=== PATIENT | female | born 1975 | race African-American/Black ===

== ENCOUNTER 2016-10-20 00:07 | Emergency (ER) | payer BC ==
[~2016-10-20] VITALS: Ht 165.1 cm; Wt 81.6 kg
[~2016-10-20 00:07] MED LIST: vitamin b-12; vitamin d
[2016-10-20] MEDS ORDERED: FUROSEMIDE 40 MG/4 ML VIAL. IVP ONE (01:15)
[2016-10-20 01:44] LABS: BASO # 0.1 x10^3/uL (0.0-0.2); BASO % 1 % (0-3); EOS % 6 % (0-3); HEMATOCRIT 34.5 % (36.0-47.0); HEMOGLOBIN 11.4 g/dL (12.0-15.5); LYMPH # 1.7 x10^3/uL (1.0-4.8); LYMPH % 33 % (24-48); MEAN CORPUSCULAR HEMOGLOBIN 28 pg (25-35); MEAN CORPUSCULAR HGB CONC 33 g/dL (31-37); MEAN CORPUSCULAR VOLUME 86 fL (79-100); MONO % 8 % (0-9); NEUT % 51 % (31-73); PLATELET COUNT 176 x10^3/uL (140-400); RED CELL DISTRIBUTION WIDTH 12.3 % (11.5-14.5); WHITE BLOOD COUNT 5.2 x10^3/uL (4.0-11.0)
[2016-10-20 01:47] LABS: CALCIUM 8.6 mg/dL (8.5-10.1); CREATININE 0.9 mg/dL (0.6-1.0); GFR 82.7; POTASSIUM 3.2 mmol/L (3.5-5.1)
[2016-10-20 01:54] LABS: ALBUMIN 3.7 g/dL (3.4-5.0); TOTAL BILIRUBIN 0.3 mg/dL (0.2-1.0); TOTAL PROTEIN 7.4 g/dL (6.4-8.2)
--- NOTE | 2016-10-20 02:49 | RAD ---
PROCEDURE: Bilateral lower extremity venous Doppler ultrasound. HISTORY Bilateral leg swelling. COMPARISON None. TECHNIQUE Real-time grayscale, color flow, and Doppler spectral waveform analysis of the deep veins of the lower extremity/ies performed. FINDINGS All visualized vein segments demonstrate normal compressibility and augmentation and color flow. Color flow seen within calf veins. IMPRESSION No evidence of right or left lower extremity deep vein thrombosis. Electronically signed by: Fox Sadler MD (October 20, 2016 02:47:35)
--- NOTE | 2016-10-20 03:16 | PHYS DOC ---
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 Patient reports she has pain to both ankles. Patient reports pain is greatest in her bilateral lateral malleolus's. Patient denies any history of hypertension diabetes liver longer kidney problems. Patient has no history of coronary disease or CHF. Patient not smoke or do any drugs. Patient has any recent fevers shakes chills nausea vomiting diarrhea chest pain or shortness of breath. Patient reports that she's noticed lower 70s swelling has been on and off for approximately one week. Patient reports she saw her PCP for and she reports he did not assist her very much with it. Patient's physical exam was significant for 1+ bipedal edema. Patient does have tenderness to palpation to her bilateral lateral malleolus his. Patient's ulcers were intact. Patient has good capillary refill. Patient is 2+ DP/PT pulses bilaterally and they're equal. Patient has no calf tenderness. Patient's ER workup was significant for normal labs. Patient does not have any evidence of CHF or pulmonary edema. Patient is insisting on an ultrasound. Patient feels that she has a clot in her lower 70s and is requesting that we obtain a ultrasound of her lower extremities. A/P #1 bilateral lower some pain. Etiology of this is unclear. This may be related to her fibromyalgia versus peripheral edema. Patient is given a dose of Lasix in the ED and reports no significant improvement. We will discharge her to home. Patient did have an ultrasound of her lower 70s which were negative for a DVT. The systems technologist had quickly looked at her arteries as well and she reports it was triphasic flow. The results were discussed with the patient she feels comfortable now with being discharged home. Review of Systems Review of Systems Constitutional: Denies fever or chills [] Eyes: Denies change in visual acuity, redness, or eye pain [] HENT: Denies nasal congestion or sore throat [] All other review systems are negative except as documented in the history of present illness portion. Current Medications Current Medications Current Medications Medications (Trade) Dose Ordered Sig/Riana Start Time Stop Time Status Last Admin Dose Admin Furosemide (Lasix) 40 mg 1X ONCE 10/20/16 01:15 10/20/16 01:16 DC 10/20/16 01:45 40 MG Allergies Allergies Allergies Coded Allergies Type Severity Reaction Last Updated Verified Penicillins Allergy Unknown Unknown 10/20/16 Yes Physical Exam Physical Exam Constitutional: Well developed, well nourished, no acute distress, non-toxic appearance. [] HENT: Normocephalic, atraumatic, bilateral external ears normal, Eyes: PERRLA, EOMI, conjunctiva normal, no discharge. [] Neck: Normal range of motion, no tenderness, Cardiovascular:Heart rate regular rhythm, Lungs & Thorax: Bilateral breath sounds clear to auscultation [] Abdomen: no tenderness, no masses, no pulsatile masses. [] Skin: Warm, dry, Back: No tenderness, Extremities: see above Neurologic: Alert and oriented X 3, normal motor function, normal sensory function, no focal deficits noted. [] Psychologic: Affect normal, judgement normal, mood normal. [] Current Patient Data Vital Signs Vital Signs Date Time Temp Pulse Resp B/P (MAP) Pulse Ox O2 Delivery O2 Flow Rate FiO2 10/20/16 00:57 98.6 81 16 122/75 (91) 100 Room Air 98.6 Lab Values Laboratory Tests Test 10/20/16 01:33 White Blood Count 5.2 x10^3/uL (4.0-11.0) Red Blood Count 4.00 x10^6/uL (3.50-5.40) Hemoglobin 11.4 g/dL (12.0-15.5) L Hematocrit 34.5 % (36.0-47.0) L Mean Corpuscular Volume 86 fL (79-100) Mean Corpuscular Hemoglobin 28 pg (25-35) Mean Corpuscular Hemoglobin Concent 33 g/dL (31-37) Red Cell Distribution Width 12.3 % (11.5-14.5) Platelet Count 176 x10^3/uL (140-400) Neutrophils (%) (Auto) 51 % (31-73) Lymphocytes (%) (Auto) 33 % (24-48) Monocytes (%) (Auto) 8 % (0-9) Eosinophils (%) (Auto) 6 % (0-3) H Basophils (%) (Auto) 1 % (0-3) Neutrophils # (Auto) 2.6 x10^3uL (1.8-7.7) Lymphocytes # (Auto) 1.7 x10^3/uL (1.0-4.8) Monocytes # (Auto) 0.4 x10^3/uL (0.0-1.1) Eosinophils # (Auto) 0.3 x10^3/uL (0.0-0.7) Basophils # (Auto) 0.1 x10^3/uL (0.0-0.2) D-Dimer (Terra) 0.54 ug/mlFEU (0.00-0.50) H Sodium Level 142 mmol/L (136-145) Potassium Level 3.2 mmol/L (3.5-5.1) L Chloride Level 107 mmol/L (98-107) Carbon Dioxide Level 28 mmol/L (21-32) Anion Gap 7 (6-14) Blood Urea Nitrogen 13 mg/dL (7-20) Creatinine 0.9 mg/dL (0.6-1.0) Estimated GFR (Cockcroft-Gault) 82.7 BUN/Creatinine Ratio 14 (6-20) Glucose Level 94 mg/dL (70-99) Calcium Level 8.6 mg/dL (8.5-10.1) Total Bilirubin 0.3 mg/dL (0.2-1.0) Aspartate Amino Transferase (AST) 25 U/L (15-37) Alanine Aminotransferase (ALT) 18 U/L (14-59) Alkaline Phosphatase 44 U/L (46-116) L TL-Wft-H-Type Natriuretic Peptide 48 pg/mL (0-124) Total Protein 7.4 g/dL (6.4-8.2) Albumin 3.7 g/dL (3.4-5.0) Albumin/Globulin Ratio 1.0 (1.0-1.7) Laboratory Tests 10/20/16 01:33 Laboratory Tests 10/20/16 01:33 EKG EKG [] Radiology/Procedures Radiology/Procedures [] Course & Med Decision Making Course & Med Decision Making Pertinent Labs and Imaging studies reviewed. (See chart for details) [] Dragon Disclaimer Dragon Disclaimer This electronic medical record was generated, in whole or in part, using a voice recognition dictation system. Departure Departure Impression: Primary Impression: Leg pain, bilateral Additional Impression: Peripheral edema Disposition: HOME, SELF-CARE Condition: STABLE Referrals: DERIC BENNETT MD (PCP) Patient Instructions: Ankle Pain, Fibromyalgia, Peripheral Edema Problem Qualifiers ANTONY AVALOS MD October 20, 2016 03:16
[2016-10-20 03:30] VITALS: BP 105/65
== END 2016-10-20 03:37 | disposition home or self-care (01) ==
LOC: ER 00:07
DX: M25.572 Pain in left ankle and joints of left foot (principal); M25.571 Pain in right ankle and joints of right foot; R60.0 Localized edema; M79.7 Fibromyalgia; F41.9 Anxiety disorder, unspecified; Z88.0 Allergy status to penicillin; Z90.49 Acquired absence of other specified parts of digestive tract
CPT/HCPCS: 36415; 80053; 83880; 85027; 85379; 93970; 96374; 99285; J1940

== ENCOUNTER 2017-03-11 21:28 | Emergency (ER) | payer BC ==
[~2017-03-11] VITALS: Ht 165.1 cm; Wt 80.7 kg
[2017-03-11 21:45] VITALS: BP 126/82
[2017-03-11] MEDS ORDERED: SULF1TAB24 PO (21:56)
[2017-03-11] MEDS ORDERED: NAPR500T PO (21:56)
--- NOTE | 2017-03-11 21:57 | PHYS DOC ---
Past Medical History Past Medical History: Anxiety, Fibromyalgia Past Surgical History: Cholecystectomy, Tonsillectomy, Other Additional Past Surgical Histo: lt knee, eptopic preg, breast augmentation Alcohol Use: None Drug Use: None Adult General Chief Complaint Chief Complaint: INSECT BITE [facility] HPI Patient is a 42 year old [female presents to the emergency department with complaints of an insect bite to the right forearm. She noticed yesterday she had what appear to be mosquito bite on the right forearm. Today the is red swollen and hot. She is here seeking evaluation. She reports no fever, no nausea , no vomiting, no myalgias, no arthralgias. Review of Systems Review of Systems Constitutional: Denies fever or chills [] Eyes: Denies change in visual acuity, redness, or eye pain [] HENT: Denies nasal congestion or sore throat [] Respiratory: Denies cough or shortness of breath [] Cardiovascular: No additional information not addressed in HPI [] GI: Denies abdominal pain, nausea, vomiting, bloody stools or diarrhea [] : Denies dysuria or hematuria [] Musculoskeletal: Denies back pain or joint pain [] Integument: Red bite on forearm Neurologic: Denies headache, focal weakness or sensory changes [] Endocrine: Denies polyuria or polydipsia [] Allergies Allergies Allergies Coded Allergies Type Severity Reaction Last Updated Verified Penicillins Allergy Unknown Unknown 10/20/16 Yes Physical Exam Physical Exam Constitutional: Well developed, well nourished, no acute distress, non-toxic appearance. [] HENT: Normocephalic, atraumatic, bilateral external ears normal, oropharynx moist, no oral exudates, nose normal. [] Eyes: PERRLA, EOMI, conjunctiva normal, no discharge. [] Neck: Normal range of motion, no tenderness, supple felt lymphadenopathy, no stridor. [] Cardiovascular:Heart rate regular rhythm, no murmur [] Lungs & Thorax: Bilateral breath sounds clear to auscultation [] Abdomen: Bowel sounds normal, soft, no tenderness, no masses, no pulsatile masses. [] Skin: Warm, dry, no erythema, no rash. [] Back: No tenderness, no CVA tenderness. [] Extremities: Right forearm distal to the antecubital space 5 cm area of erythema that is slightly raised. There is a 1 cm of central induration with a puncture racheal. There is no discharge, no fluctuance. It is nontender to palpate. Neurologic: Alert and oriented X 3, normal motor function, normal sensory function, no focal deficits noted. [] Psychologic: Affect normal, judgement normal, mood normal. [] EKG EKG [] Radiology/Procedures Radiology/Procedures [] Course & Med Decision Making Course & Med Decision Making Pertinent Labs and Imaging studies reviewed. (See chart for details) []Patient has a small area of induration that appears to be cellulitis. She'll be placed on Bactrim 1 by mouth twice a day #20 no refills. She was advised to use ice and draw for underlying allergic component. I spoke with the patient and/or care givers. I've explained the patient's condition, diagnosis and treatment plan based on the information available to me at this time. I've answered the patient's and/or care givers questions and a dressing concerns. The patient and/or care givers have as good an understanding of the patient's diagnosis, condition and treatment plan as can be expected at this time. Vital signs stable. The patient's condition is stable and appropriate for discharge from the emergency department. The patient will pursue further outpatient evaluation with the primary care physician or other designated or consulting physician as outlined in the discharge instructions. The patient and/or care givers are agreeable to this plan of care and follow-up instructions and explained in detail. The patient and /or care givers have received these instructions in written format and have expressed an understanding of the discharge instructions. The patient and/or caregivers are aware that any significant change in condition or worsening of symptoms should prompt immediate return to this closest emergency department or call to 911. Dragon Disclaimer Dragon Disclaimer This electronic medical record was generated, in whole or in part, using a voice recognition dictation system. Departure Departure Impression: Primary Impression: Cellulitis Additional Impression: Insect bite Disposition: HOME, SELF-CARE Condition: STABLE Referrals: DERIC BENNETT MD (PCP) Patient Instructions: Cellulitis, Insect Bite Scripts Naproxen (NAPROSYN) 500 Mg Tablet 500 MG PO BID Y for PAIN, #20 TAB Prov: EMELINA SAWYER APRN 03/11/17 Sulfamethoxazole/Trimethoprim (BACTRIM DS TABLET) 1 Each Tablet 1 TAB PO BID, #20 TAB Prov: EMELINA SAWYER INTERNIST 03/11/17 Problem Qualifiers Primary Impression: Cellulitis Site of cellulitis: extremity Site of cellulitis of extremity: upper extremity Laterality: right Qualified Codes: L03.113 - Cellulitis of right upper limb Additional Impression: Insect bite Encounter type: initial encounter Qualified Codes: W57.XXXA - Bitten or stung by nonvenomous insect and other nonvenomous arthropods, initial encounter EMELINA SAWYER INTERNIST Mar 11, 2017 21:57
== END 2017-03-11 22:00 | disposition home or self-care (01) ==
LOC: ER 21:28
DX: S50.861A Insect bite (nonvenomous) of right forearm, initial encounter (principal); L03.113 Cellulitis of right upper limb; M79.7 Fibromyalgia; Z88.0 Allergy status to penicillin; W57.XXXA Bitten or stung by nonvenomous insect and other nonvenomous arthropods, initial encounter; Y93.89 Activity, other specified; Y92.89 Other specified places as the place of occurrence of the external cause; Y99.8 Other external cause status
CPT/HCPCS: 99283

== ENCOUNTER 2020-07-08 23:39 | Emergency (ER) | payer BC ==
[~2020-07-08] VITALS: Ht 165.1 cm; Wt 87.1 kg
[~2020-07-08 23:39] MED LIST changes: +NAPR-683 PO; +SULF1TAB24 PO
[2020-07-09 00:01] LABS: BILIRUBIN,URINE NEGATIVE (NEG); CLARITY,URINE CLEAR; COLOR,URINE YELLOW; NITRITE,URINE NEGATIVE (NEG); PH,URINE 7.5 (<5.0-8.0); PROTEIN,URINE NEGATIVE (NEG-TRACE); UROBILINOGEN,URINE 0.2 mg/dL (0.2 mg/dL)
[2020-07-09 00:12] LABS: BACTERIA,URINE MODERATE /HPF (0-FEW)
--- NOTE | 2020-07-09 00:14 | PHYS DOC ---
Past Medical History Past Medical History: Anxiety, Fibromyalgia, GERD, Migraines Past Surgical History: Cholecystectomy, Colectomy, Knee Replacement, Tonsillectomy, Other Additional Past Surgical Histo: lt knee, eptopic preg, breast augmentation Smoking Status: Never Smoker Alcohol Use: None Drug Use: None General Adult EDM: Chief Complaint: FLANK PAIN HPI: HPI: Patient is a 45 year old female who presents with yesterday went to [facility] urgent care and was diagnosed with a urinary tract infection. They placed on Macrobid antibiotic. Today she states that she is having right flank pain that feels as if " she was punched in the kidney". She states she has slight nausea. Patient denies vomiting, diarrhea, constipation, fever, headache, dizziness, back injury, chest pain, shortness of breath, cough. She is a history of migraines, anxiety, cholecystectomy, colectomy, breast augmentation, tonsillectomy, knee replacement, fibromyalgia, GERD. Patient states she did not take any pain medications today or prior to coming. She rates her pain a 10 out of 10. There is no radiation. Review of Systems: Review of Systems: Constitutional: Denies fever or chills. [] Eyes: Denies change in visual acuity. [] HENT: Denies nasal congestion or sore throat. [] Respiratory: Denies cough or shortness of breath. [] Cardiovascular: Denies chest pain or edema. [] GI: Denies abdominal pain, nausea, vomiting, bloody stools or diarrhea. [] : + dysuria. [] Musculoskeletal: + Right flank back pain or denies joint pain. [] Integument: Denies rash. [] Neurologic: Denies headache, focal weakness or sensory changes. [] Endocrine: Denies polyuria or polydipsia. [] Lymphatic: Denies swollen glands. [] Psychiatric: Denies depression or anxiety. [] Heart Score: Risk Factors: Risk Factors: DM, Current or recent (<one month) smoker, HTN, HLP, family history of CAD, obesity. Risk Scores: Score 0 - 3: 2.5% MACE over next 6 weeks - Discharge Home Score 4 - 6: 20.3% MACE over next 6 weeks - Admit for Clinical Observation Score 7 - 10: 72.7% MACE over next 6 weeks - Early Invasive Strategies Allergies: Allergies: Allergies Coded Allergies Type Severity Reaction Last Updated Verified Penicillins Allergy Unknown Unknown 10/20/16 Yes Physical Exam: PE: Constitutional: Well developed, well nourished, no acute distress, non-toxic appearance. [] HENT: Normocephalic, atraumatic, bilateral external ears normal, oropharynx moist, no oral exudates, nose normal. [] Eyes: PERRLA, EOMI, conjunctiva normal, no discharge. [] Neck: Normal range of motion, no tenderness, supple, no stridor. [] Cardiovascular:Heart rate regular rhythm, no murmur [] Lungs & Thorax: Bilateral breath sounds clear to auscultation [] Abdomen: Bowel sounds normal, soft, no tenderness, no masses, no pulsatile masses. [] Skin: Warm, dry, no erythema, no rash. [] Back: No tenderness, no CVA tenderness. [] Extremities: No tenderness, no cyanosis, no clubbing, ROM intact, no edema. [] Neurologic: Alert and oriented X 3, normal motor function, normal sensory function, no focal deficits noted. [] Psychologic: Affect normal, judgement normal, mood normal. Normal physical exam [] Current Patient Data: Labs: Laboratory Tests Test 07/08/20 23:54 POC Urine HCG, Qualitative Hcg negative (Negative) EKG: EKG: [] Radiology/Procedures: Radiology/Procedures: [] Impression: [facility] [address] [place], [place] [id number] IMAGING REPORT Signed PATIENT: GERMAN PEDRAZA ACCOUNT: [id number] : 1975 LOCATION: ER AGE: 45 SEX: F EXAM STATUS: REG ER ORD. PHYSICIAN: LOLI BOGGS APRN REASON: right flank pain PROCEDURE: CT ABDOMEN PELVIS WO CONTRAST PQRS Compliance Statement: One or more of the following individualized dose reduction techniques were utilized for this examination: 1. Automated exposure control 2. Adjustment of the mA and/or kV according to patient size 3. Use of iterative reconstruction technique CT ABDOMEN+PELVIS WO Clinical Indication: Reason: right flank pain / Comparison: None. Technique: Helical CT imaging of the abdomen and pelvis is performed without IV or oral contrast. Findings: Evaluation of solid organs and bowel is limited without oral and IV contrast, decreasing sensitivity for detection of pathology. There is right breast implant. The lung bases are clear. Cardiac size normal. There is small pericardial effusion. Cholecystectomy. The liver, spleen, pancreas, adrenal glands, and abdominal aorta are normal. There is no renal, ureteral, or bladder calculus. There is no perinephric straining or hydronephrosis. The stomach is unremarkable. There is no dilated small bowel. There is a proximal sigmoid colon surgical anastomosis. There is stool scattered throughout the colon. No colon wall thickening is seen. Appendectomy. There is no abdominal adenopathy or free fluid. IUD in the uterus. Mild pelvic free fluid. Ovaries appear symmetric in size. The urinary bladder is not well distended, otherwise normal. 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 IMPRESSION: 1. No acute abdominal or pelvic abnormality. No obstructive uropathy. 2. Small pericardial effusion. 3. Mild pelvic free fluid, probably physiologic. Electronically signed by: Fox Sadler MD (07/09/2020 12:45 AM) [facility] DICTATED and SIGNED BY: FOX SADLER MD DATE: 07/09/20 [id number] Course & Med Decision Making: Course & Med Decision Making Pertinent Labs and Imaging studies reviewed. (See chart for details) See HPI. Alert and oriented x4. Ambulatory with a steady gait. No CVA tenderness. Abdomen soft and nontender. Afebrile. Speaks in full clear sentences. Skin pink warm and dry. Urinalysis shows slight infection. Patient can continue taking Macrobid. Blood work is unremarkable. CT abdomen pelvis shows no acute findings. It did find a small pericardial effusion. Patient is asymptomatic with that small pericardial effusion. patient was given a liter of fluid and fentanyl in the ED. Patient will be sent home with hydrocodone. [] Dragon Disclaimer: Dragon Disclaimer: This electronic medical record was generated, in whole or in part, using a voice recognition dictation system. Departure Departure Impression: Primary Impression: Flank pain, acute Disposition: 01 DC HOME SELF CARE/HOMELESS Condition: STABLE Referrals: DERIC BENNETT MD (PCP) Patient Instructions: Flank Pain, Urinary Tract Infection Additional Instructions: Follow up with your primary care provider. Take medication as prescribed. Drink plenty of fluids. Begin vomiting and cannot keep down fluids or start running a fever return to the ER. Scripts Hydrocodone Bit/Acetaminophen (HYDROCODONE-APAP 5-325 ) 1 Tab Tablet 1 TAB PO PRN Q6HRS PRN for PAIN, #12 TAB 0 Refills Prov: LOLI BOGGS APRN 07/09/20 LOLI BOGGS APRN Jul 09, 2020 00:14
--- NOTE | 2020-07-09 00:47 | RAD ---
PQRS Compliance Statement: One or more of the following individualized dose reduction techniques were utilized for this examinat ion: 1. Automated exposure control 2. Adjustment of the mA and/or kV according to patient size 3. Use of iterative reconstruction technique CT ABDOMEN+PELVIS WO Clinical Indication: Reason: right flank pain / Comparison: None. Technique: Helical CT imaging of the abdomen and pelvis is performed without IV or oral contrast. Findings: Evaluation of solid organs and bowel is limited without oral and IV contrast, decreasing sensitivity for detection of pathology. There is right breast implant. The lung bases are clear. Cardiac size normal. There is small pericard ial effusion. Cholecystectomy. The liver, spleen, pancreas, adrenal glands, and abdominal aorta are normal. There is no renal, ureteral, or bladder calculus. There is no perinephric straining or hydronephrosis . The stomach is unremarkable. There is no dilated small bowel. There is a proximal sigmoid colon surgi philly anastomosis. There is stool scattered throughout the colon. No colon wall thickening is seen. Genoveva endectomy. There is no abdominal adenopathy or free fluid. IUD in the uterus. Mild pelvic free fluid. Ovaries appear symmetric in size. The urinary bladder is n ot well distended, otherwise normal. 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 IMPRESSION: 1. No acute abdominal or pelvic abnormality. No obstructive uropathy. 2. Small pericardial effusion. 3. Mild pelvic free fluid, probably physiologic. Electronically signed by: Fox Sadler MD (07/09/2020 12:45 AM) [facility]
[2020-07-09 00:49] LABS: BASO # 0.1 x10^3/uL (0.0-0.2); BASO % 2 % (0-3); EOS # 0.2 x10^3/uL (0.0-0.7); EOS % 5 % (0-3); HEMATOCRIT 36.1 % (36.0-47.0); HEMOGLOBIN 12.1 g/dL (12.0-15.5); LYMPH # 1.9 x10^3/uL (1.0-4.8); LYMPH % 35 % (24-48); MEAN CORPUSCULAR HEMOGLOBIN 29 pg (25-35); MEAN CORPUSCULAR HGB CONC 34 g/dL (31-37); MEAN CORPUSCULAR VOLUME 87 fL (79-100); MONO # 0.6 x10^3/uL (0.0-1.1); MONO % 11 % (0-9); NEUT # 2.6 x10^3/uL (1.8-7.7); NEUT % 48 % (31-73); PLATELET COUNT 200 x10^3/uL (140-400); RED BLOOD COUNT 4.14 x10^6/uL (3.50-5.40); RED CELL DISTRIBUTION WIDTH 12.2 % (11.5-14.5); WHITE BLOOD COUNT 5.4 x10^3/uL (4.0-11.0)
[2020-07-09] MEDS ORDERED: HYDR-2761 PO (00:55)
[2020-07-09 01:03] LABS: CALCIUM 8.4 mg/dL (8.5-10.1); CREATININE 0.9 mg/dL (0.6-1.0); GFR 81.2; POTASSIUM 3.9 mmol/L (3.5-5.1)
[2020-07-09 01:06] VITALS: BP 119/59
[2020-07-09 01:09] LABS: ALBUMIN 3.7 g/dL (3.4-5.0); ALBUMIN/GLOBULIN RATIO 1.1 (1.0-1.7); TOTAL BILIRUBIN 0.3 mg/dL (0.2-1.0)
== END 2020-07-09 01:10 | disposition home or self-care (01) ==
LOC: ER 23:39
DX: R10.9 Unspecified abdominal pain (principal); R11.0 Nausea; R30.0 Dysuria; K21.9 Gastro-esophageal reflux disease without esophagitis; G43.909 Migraine, unspecified, not intractable, without status migrainosus; F41.9 Anxiety disorder, unspecified; Z90.49 Acquired absence of other specified parts of digestive tract; Z88.0 Allergy status to penicillin
CPT/HCPCS: 36415; 74176; 80053; 81001; 81025; 85025; 87086; 99284-25